=== PATIENT | female | born 1960 | race Caucasian/White ===

== ENCOUNTER → 2022-04-01 | Outpatient (CLI) | payer OTHER ==
[~2022-04-01] MED LIST: BEBTELOVIMAB (EUA) 175 MG/2 ML VIAL IV ONE; SODIUM CHLORIDE 0.9% 500 ML 500 ML in EMPTY BAG 1 BAG IV PRN
[2022-04-01 12:19] VITALS: RESP 18; TEMP 100.6
[2022-04-01 13:02] VITALS: BP 118/69; PULSE 82
== END ==
LOC: PROCWHC3 12:05
PROVIDERS: ATTEND Physician Assistant
DX: U07.1 COVID-19 (principal); E66.9 Obesity, unspecified; E11.9 Type 2 diabetes mellitus without complications; Z28.310 Unvaccinated for COVID-19; Z68.43 Body mass index [BMI] 50.0-59.9, adult
CPT/HCPCS: Q0222; M0222

== ENCOUNTER → 2022-10-16 | Outpatient (CLI) | payer OTHER ==
--- NOTE | 2022-10-16 08:54 | MR ---
MRI CERVICAL SPINE: CLINICAL HISTORY: Headaches with Neck pain into left shoulder/arm for 3 weeks per patient. Cervical r egion radiculopathy. TECHNIQUE: Multiplanar, multisequence imaging of the cervical spine is performed without IV contrast. COMPARISON: None. FINDINGS: Sagittal images of the cervical spine show the craniocervical junction to appear within nor mal limits. The cervical and upper thoracic spinal cord is normal in course, caliber, and signal. V ertebral alignment is straightened. The vertebral body heights are normal. Mild to moderate disc spa ce narrowing C5-C6 level. Mild disc space narrowing C6-C7 level. Small osseous hemangioma involving C 7 vertebra sagittal image 8. Axial images show C2-C3 through the C4-C5 levels to appear within normal limits. Axial images at C5-C6 level show posterior spur disc complex effacing anterior thecal sac and uncover tebral facet degenerative change causing mild bilateral neural foraminal narrowing. Axial images at C6-C7 level appear within normal limits. Axial images at C7-T1 level showed broad based posterior disc protrusion effacing anterior thecal sac , patent bilateral neural foramina. IMPRESSION: Straightening of cervical spine with some degenerative change C5-C6 and C7-T1 levels seen as detailed above.
== END | disposition home or self-care (01) ==
LOC: RADMRIMAIN 07:15
PROVIDERS: ATTEND Family Medicine
DX: M47.22 Other spondylosis with radiculopathy, cervical region (principal)
CPT/HCPCS: 72141